=== PATIENT | female | born 1995 | race Caucasian/White ===

== ENCOUNTER 2021-08-03 23:08 | Emergency (ER) | payer MEDICAID, SELFPAY ==
--- NOTE | ~2021-08-03 | CT_ITS ---
EXAMINATION: CT HEAD WITHOUT CONTRAST CLINICAL INFORMATION: Fall. COMPARISON: None. TECHNIQUE: Contiguous axial imaging was performed from the skull base to vertex without intravenous administration of contrast. Coronal and sagittal reformatted images are performed at the CT scanner. [This CT examination was performed using dose optimization techniques as appropriate, variously including the following: *Automated exposure control *Adjustment of mA and/or kV according to patient size (this includes techniques or standardized protocols for targeted exams where dose is matched to indication/reason for exam; i.e. extremities or head) *Use of iterative reconstruction technique] DLP: 654 mGy-cm. FINDINGS: There is no evidence of acute intracranial hemorrhage or territorial infarction. No abnormal mass-effect or midline shift is seen. Costello to white matter differentiation is well preserved. No extra-axial fluid collections are identified. The ventricles are normal in size. There is no abnormal attenuation within the brain parenchyma. There is no osseous abnormality. The mastoid air cells and visualized portions of the paranasal sinuses are well-aerated. CT/CT head/brain wo con IMPRESSION: No acute intracranial pathology.
[2021-08-03 23:32] VITALS: BP 106/61; PULSE 118; RESP 16; TEMP 36.3; O2SAT 100; BMI 27.1
[2021-08-04 00:32] VITALS: BP 102/58; PULSE 116; RESP 15; O2SAT 100
--- NOTE | 2021-08-04 00:52 | ED.FALL ---
HPI - Fall General Chief Complaint: Fall Stated Complaint: fall Time Seen by Provider: 08/04/21 00:41 Source: patient Mode of arrival: ambulatory Limitations: no limitations History of Present Illness HPI Narrative: Patient took prazosin for the 1st time for nightmares within 1 hour she was standing washing her tattoo for lightheaded and fell does not remember what she hit but found herself on the floor likely she hit the wall before the fall came with superficial swelling of the forehead since the fall patient has been falling sleepy no nausea no vomiting no seizures no other injury Related Data Allergies Allergy/AdvReac Type Severity Reaction Status Date / Time No Known Allergies Allergy Verified 08/03/21 23:31 [No Known Allergies*] Review of Systems Review of Systems: Yes all other systems are reviewed and are negative [facility] Past Medical History Medical History Asthma Social History Social History Patient Tobacco Use Status: Never used Tobacco Use of substances other than those prescribed or required for medical reasons: Yes Substance Use Type: Marijuana Substance Use Frequency: Occasionally Advance Directives: No Advance Directives Information Provided: No Physical Exam Vital Signs: Vital Signs: Last Vital Signs Temp 97.4 F 08/03/21 23:32 Pulse 109 H 08/04/21 01:27 Resp 15 08/04/21 00:32 BP 106/66 08/04/21 01:27 Pulse Ox 100 08/04/21 00:32 Body Mass Index 27.1 Const: General: comfortable, no acute distress and well developed HENMT: Head: Yes No palpable skull fracture present Head images: 1. Soft tissue swelling forehead mild tenderness Ears: hearing grossly normal bilaterally MDM - Fall MDM Narrative Medical decision making narrative: Patient with mechanical fall secondary to vasovagal attack head CT is negative orthostatics stable patient feeling much better now will discharge patient home Discharge Plan Discharge Clinical Impression: Vasovagal near syncope Head injury Qualifiers: Encounter type: initial encounter Qualified Code(s): S09.90XA - Unspecified injury of head, initial encounter Patient Disposition: Home, Self-Care Instructions: Head Injury (ED), Lightheadedness (ED) Additional Instructions: Local care as advised after taking the medication try to stay in the bed for some time before start getting up as medication can drop the blood pressure transiently
[2021-08-04 01:25] VITALS: BP 110/59; PULSE 99
[2021-08-04 01:26] VITALS: BP 115/68; PULSE 102
[2021-08-04 01:27] VITALS: BP 106/66; PULSE 109
== END 2021-08-04 02:24 | disposition home or self-care (01) ==
PROVIDERS: Emergency Provider Internal Medicine
DX: R55 Syncope and collapse (principal); S09.90XA Unspecified injury of head, initial encounter; W17.89XA Other fall from one level to another, initial encounter; Y93.89 Activity, other specified; Y92.019 Unspecified place in single-family (private) house as the place of occurrence of the external cause; Y99.9 Unspecified external cause status
CPT/HCPCS: 70450; 99284